=== PATIENT | female | born 1990 | race Caucasian/White ===

== ENCOUNTER 2017-04-28 11:22 | Emergency (ER) | payer MEDICAID, OTHER ==
[~2017-04-28] VITALS: Ht 157.5 cm; Wt 71.5 kg
[2017-04-28 11:38] VITALS: Ht 157.5 cm; Wt 71.5 kg
--- NOTE | 2017-04-28 12:19 | ERD ---
ER Documentation Chief Complaint Date/Time DATE: 04/28/17 TIME: 12:14 Chief Complaint Complains of eye pain after chemical exposure HPI 27-year-old female complains of left eye chemical exposure at about 1 PM this afternoon. 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 She was not wearing any eye protection, she does not wear any contact lenses. Patient reports that there is some burning pain, she went to the eye wash station for approximately 15-20 minutes that alleviated her pain however she still continues of some mild burning. She states that she feels like her vision is blurry at this time. Her tetanus status is unknown. ROS All systems reviewed and are negative except as per history of present illness. Medications Home Meds Active Scripts Erythromycin* (Erythromycin* Ophthalmic) 1 Applic Oint, 1 APPLIC LEFT EYE QID for 7 Days, EA Prov:VALARIE SALMERON PA-C 04/28/17 Allergies Allergies: Coded Allergies: ibuprofen (Verified Allergy, Severe, SWELLING, 03/01/13) Sulfa (Sulfonamide Antibiotics) (Verified Allergy, Unknown, 03/20/15) PMhx/Soc History of Surgery: Yes (c section) Anesthesia Reaction: No Hx Neurological Disorder: No Hx Respiratory Disorders: Yes (asthma) Hx Cardiac Disorders: No Hx Psychiatric Problems: No Hx Miscellaneous Medical Probl: No Hx Alcohol Use: No Hx Substance Use: No Hx Tobacco Use: No Physical Exam Vitals Vital Signs Date Time Temp Pulse Resp B/P Pulse Ox O2 Delivery O2 Flow Rate FiO2 04/28/17 11:38 98.9 61 20 122/67 98 Physical Exam General: Well-developed, well-nourished. The patient appears in no acute distress. HEENT: Head is normocephalic, atraumatic. No scleral icterus. Eye Exam: Visual Acuity: 20/30, 20/30 20/30 bilaterally. Visual Golden: Intact in all four quadrants bilaterally Lac ducts/glands: No swelling Lids w/ evertion: Normal, no foreign body Conj/[place]: Mild injection to the left conjunctiva, negative Fluorescein/Yusef's Anterior Chamber: Clear Neck: Supple. Nontender. Lungs: Clear to auscultation. Normal air movement. Heart: Regular rate and rhythm. S1 and S2 are normal. No murmurs, gallops, or rubs. Abdomen: Nondistended. Extremities: No clubbing or cyanosis. Moving extremities x 4. No weakness. Neurologic: Alert and oriented 3. No focal deficits. Normal speech and gait. Skin: Normal turgor. No rash or lesions. Results 24 hrs Current Medications Medications (Trade) Dose Ordered Sig/Ricardo Route PRN Reason Start Time Stop Time Status Last Admin Dose Admin Tetracaine HCl (Tetracaine 0.5% Steri-Unit Orly) 1 drop ONCE ONCE LEFT EYE 04/28/17 12:30 04/28/17 12:31 DC Fluorescein Sodium (Zlzew-D-Bvsef) 1 strip ONCE ONCE LEFT EYE 04/28/17 12:30 04/28/17 12:31 DC Diphtheria/ Tetanus/Acell Pertussis (Adacel) 0.5 ml ONCE ONCE IM* 04/28/17 13:30 04/28/17 13:31 DC Procedures/MDM ED course: I spoke with poison control, they advised that because the patient did not bring the bottle to the hospital we do not know the percentage, we will treat her conservatively with a higher percentage at this time. It is recommended to do eyewash for 30 minutes, she was hooked up to the Shailesh lens and eyewash was repeated for 30 minutes. Tetanus was updated. The advise any drops would be appropriate to cover the patient, and to look for an ulceration with Stevenson lamp. Medical decision making: This is a 27-year-old female comes with an exposure with Cavicide, she was treated after consulting with poison control. Eye wash was done for 30 minutes, and her visual acuity is intact, and is 20/30 bilaterally. She states that after the eye wash was done with the Shailesh lens she feels much better. She was treated for potential burn injury given that she was exposed to the cleaning solution and her tetanus was updated here in the ER. There is no evidence of uptake on the staining, there is no ulcer, no globe rupture, no evidence of any abrasions. She will be covered however with erythromycin ointment, for prophylaxis as well as for symptomatic relief. She was advised to follow-up with ophthalmology next 1 to days for recheck, and was given information to [facility]. Departure Diagnosis: Primary Impression: Chemical exposure of eye Condition: VALARIE Vasquez PA-C Apr 28, 2017 12:18
[2017-04-28] MEDS ORDERED: TETRACAINE 0.5% 4 ML OPH LEFT EYE ONE (12:30)
[2017-04-28] MEDS ORDERED: FLUORESCEIN STRIP LEFT EYE ONE (12:30)
[2017-04-28] MEDS ORDERED: ERYTOPOI LEFT EYE (13:30)
[2017-04-28] MEDS ORDERED: DIPHTH/TET/ACEL PERTUSS (ADULT) 0.5 ML VIAL IM* ONE (13:30)
== END 2017-04-28 13:58 | disposition home or self-care (01) ==
LOC: FTE 11:22
DX: T65.91XA Toxic effect of unspecified substance, accidental (unintentional), initial encounter (principal); J45.909 Unspecified asthma, uncomplicated; Z23 Encounter for immunization
CPT/HCPCS: 90715; Z7610; 90471